=== PATIENT | female | born 2000 | race Caucasian/White ===

== ENCOUNTER 2020-10-01 00:11 | Emergency (ER) | payer SELFPAY ==
[2020-10-01] MEDS ORDERED: Ketorolac Tromethamine 30 MG/ML VIAL ONE (00:54)
[2020-10-01 00:56] LABS: #Basophils 0.1 thou/uL (0.0-0.2); #Eosinphils 0.6 thou/uL (0.0-0.7); #Lymphocytes 1.8 thou/uL (1.20-3.40); #Monocytes 0.1 thou/uL (0.11-0.59); #Neutrophils 7.6 thou/uL (1.40-6.50); %Basophils 0.5 % (0.0-1.0); %Eosinophils 5.5 % (0.0-10.0); %Lymphocytes 18.3 % (21.0-51.0); %Monocytes 0.5 % (0.0-10.0); %Neutrophils 75.1 % (42.0-75.0); MDiff Complete? YES; Mean Corpuscular HGB CONC 31.2 g/dL (32.0-36.0); Mean Corpuscular Hemoglobin 22.3 pg (27.0-31.0); Mean Corpuscular Volume 71.4 fL (78.0-98.0); Mean Platelet Volume 7.7 fL (7.4-10.4); Microcytosis SLIGHT = 6-15 cells (100X) (0-5/hpf); Platelet Count 496 thou/uL (130-400); Red Blood Cell (RBC) Count 4.51 mill/uL (4.20-5.40); White Blood Cell (WBC) Count 10.1 thou/uL (4.8-10.8)
[2020-10-01 01:08] LABS: Pregnancy Test - Urine (BHCG) POSITIVE (Negative)
[2020-10-01 01:11] LABS: Bacteria/HPF 3+ HPF (None Seen); Bilirubin Negative (Negative); Blood, Urine 2+ (Negative); Calcium Oxalate Crystals 4+ HPF (None Seen); Clarity Turbid (Clear); Glucose, Urine (Dipstick) Normal (Negative); Ketone, Urine Negative (Negative); Leukocyte Negative Leu/uL (Negative); Nitrite 2+ (Negative); Protein, Urine (Dipstick) 20 mg/dL (Neg-Trace); RBC/HPF 0-3 HPF (0-3); Squamous Epithelial 0-3 HPF (0-3); Urobilinogen Normal mg/dL (Less than 2); pH, Urine 5.5 (5.0-9.0)
[2020-10-01 01:12] LABS: Pregu Control Background? CLEAR/WHITE (CLR/WHITE); Pregu Control Bar Appear? YES (CONTROL BAR)
[2020-10-01 01:13] LABS: Anion Gap 15 mmol/L (10-20); BUN (Urea Nitrogen) 10 mg/dL (7.0-18.7); Calc. Creatinine Clearance 0 mL/min (70-130); Carbon Dioxide 21 mmol/L (22-29); Chloride 103 mmol/L (98-107); Glucose 91 mg/dL (70-105); Potassium 5.1 mmol/L (3.5-5.1); Sodium 134 mmol/L (136-145)
[2020-10-01] MEDS ORDERED: cefTRIAXone\\ROCEPHIN 1 GM VIAL ONE (02:37)
--- NOTE | 2020-10-01 09:24 | ULT ---
PRELIMINARY REPORT/DIRECT RADIOLOGY/EMERGENCY AFTER HOURS PROCEDURE: EXAM: US Obstetrical, Complete <14 weeks CLINICAL HISTORY: Lt flank to lt lower back pain, unknown LMP, HCG [id number] TECHNIQUE: Transabdominal imaging of the maternal pelvis and a <14 week gestation with image document ation. COMPARISON: None provided. FINDINGS: GESTATION: An intrauterine gestation is noted with a CRL of 4.9 cm corresponding to 11 weeks 5 days a nd demonstrating a heartbeat of 158 bpm. The placenta is anterior. UTERUS: Unremarkable. No myometrial mass. Measures 10.8 x 8.9 cm. CERVIX: Closed. Unremarkable. OVARIES: Unremarkable. No mass. The RIGHT side measures 3.5 x 1.6 x 1.5 cm and the LEFT side measure s 3.4 x 2.0 x 2.5 cm. A 1.2 x 1.0 x 0.5 cm LEFT ovarian cyst is noted. FREE FLUID: No free fluid. IMPRESSION: Single viable intrauterine . No acute abnormality. ELECTRONICALLY SIGNED BY: Sandro Arce MD Oct 01, 2020 2:38:50 AM LANGUAGE SPECIALIST FINAL REPORT OB ULTRASOUND: Viable intrauterine . [place]-rump length indicates 11-week 5-day gestational age. hea rt beat recorded at 158 b.p.m. I am in agreement with the preliminary report. POS: AGW
--- NOTE | 2020-10-01 09:30 | ULT ---
PRELIMINARY REPORT/DIRECT RADIOLOGY/EMERGENCY AFTER HOURS PROCEDURE: EXAM: US Retroperitoneum Complete, Renal. CLINICAL HISTORY: Lt flank to lt lower back pain TECHNIQUE: Real-time ultrasound of the retroperitoneum (complete) with image documentation. COMPARISON: None provided. FINDINGS: RIGHT KIDNEY: No hydronephrosis, renal stone, or mass visualized. Measures 10.7 x 4.5 x 5.0 cm LEFT KIDNEY: No hydronephrosis, renal stone, or mass visualized. Measures 12.0 x 6.3 x 5.1 cm BLADDER: Unremarkable as visualized. Measures 2.4 x 6.2 x 2.5 cm corresponding to a volume of 21 cc. Neither ureteral jet was visualized IMPRESSION: No hydronephrosis. ELECTRONICALLY SIGNED BY: Sandro Arce MD Oct 01, 2020 2:32:14 AM GIFT CONSULTANT FINAL REPORT RENAL ULTRASOUND: Both kidneys are imaged and appear unremarkable. No hydronephrosis. No evidence of calculus or mass . The bladder is mildly distended and appears unremarkable. I am in agreement with the preliminary report. POS: [facility]
== END 2020-10-01 03:16 | disposition home or self-care (01) ==
LOC: ERS 00:11
DX: O23.41 Unspecified infection of urinary tract in pregnancy, first trimester (principal); O99.331 Smoking (tobacco) complicating pregnancy, first trimester; Z3A.13 13 weeks gestation of pregnancy
CPT/HCPCS: 76770; 76856; 80048; 81003; 81015; 81025; 84702; 85025; 93976; 96365; 96375; J0696; J1885

== ENCOUNTER 2021-01-09 08:01 | Outpatient (CLI) | payer OTHER | END 2021-01-09 08:02 | disposition home or self-care (01) | LOC: BICULT 08:01 | PROVIDERS: ATTEND Family Medicine | DX: Z34.02 Encounter for supervision of normal first pregnancy, second trimester (principal); Z3A.26 26 weeks gestation of pregnancy | CPT/HCPCS: 76805 ==

== ENCOUNTER 2021-02-15 13:38 | Emergency (ER) | payer OTHER | END 2021-02-15 16:16 | disposition home or self-care (01) | LOC: ERS 13:38 | DX: O99.513 Diseases of the respiratory system complicating pregnancy, third trimester (principal); J45.901 Unspecified asthma with (acute) exacerbation; Z3A.31 31 weeks gestation of pregnancy; O99.333 Smoking (tobacco) complicating pregnancy, third trimester; F17.210 Nicotine dependence, cigarettes, uncomplicated | CPT/HCPCS: 71045; 93005; J7620 ==

== ENCOUNTER 2023-09-01 15:18 | Emergency (ER) | payer OTHER, SELFPAY ==
[2023-09-01] MEDS ORDERED: Dexamethasone 10 MG/ML VIAL ONE (15:53)
[2023-09-01] MEDS ORDERED: Ipratropium/Albuterol 3 ML NEB ONE (15:59)
[2023-09-01 17:37] LABS: SARS-CoV-2 NAA Rapid Test Not Detected (NotDetected)
[2023-09-01 18:19] LABS: #Monocytes 0.2 thou/uL (0.11-0.59); #Neutrophils 8.2 thou/uL (1.40-6.50); %Basophils 0.4 % (0.0-1.0); %Eosinophils 0.1 % (0.0-10.0); %Lymphocytes 11.6 % (21.0-51.0); %Neutrophils 85.2 % (42.0-75.0); Hematocrit 40.2 % (36.0-47.0); Mean Corpuscular HGB CONC 32.3 g/dL (32.0-36.0); Mean Corpuscular Hemoglobin 28.4 pg (27.0-31.0); Mean Platelet Volume 9.4 fL (7.4-10.4); Platelet Count 357 10x3/uL (130-400); RBC Distribution Width 13.5 % (11.5-14.5); Red Blood Cell (RBC) Count 4.57 mill/uL (4.20-5.40); White Blood Cell (WBC) Count 9.7 10x3/uL (4.8-10.8)
[2023-09-01] MEDS ORDERED: diphenhydrAMINE 50 MG/ML VIAL ONE (18:21)
[2023-09-01] MEDS ORDERED: Metoclopramide HCl 10 MG/2 ML VIAL ONE (18:21)
[2023-09-01 18:43] LABS: ALT (SGPT) 29 U/L (8-55); AST (SGOT) 17 U/L (5-34); Albumin 4.2 g/dL (3.5-5.0); Alkaline Phosphatase 102 U/L (40-110); Anion Gap 14 mmol/L (10-20); BUN (Urea Nitrogen) 8 mg/dL (7.0-18.7); Bilirubin, Total 0.3 mg/dL (0.2-1.2); Calc. Creatinine Clearance 0 mL/min (70-130); Calcium 9.1 mg/dL (7.8-10.44); Carbon Dioxide 19 mmol/L (22-29); Chloride 108 mmol/L (98-107); Estimated GFR 124; Globulin 3.4 g/dL (2.4-3.5); Glucose 174 mg/dL (70-105); Potassium 3.7 mmol/L (3.5-5.1); Protein, Total 7.6 g/dL (6.0-8.3); Sodium 137 mmol/L (136-145)
== END 2023-09-01 19:26 | disposition home or self-care (01) ==
LOC: ERS 15:18
DX: J06.9 Acute upper respiratory infection, unspecified (principal); G43.009 Migraine without aura, not intractable, without status migrainosus; F17.210 Nicotine dependence, cigarettes, uncomplicated
CPT/HCPCS: 36415; 71045; 80053; 85025; 94640; 96361; 96374; 96375; J1100; J1200; J2765; J7620

== ENCOUNTER 2023-11-17 13:34 | Emergency (ER) | payer OTHER ==
[2023-11-17 15:22] LABS: Pregnancy Test - Urine (BHCG) Negative (Negative); Pregu Control Background? CLEAR/WHITE (CLR/WHITE); Pregu Control Bar Appear? YES (CONTROL BAR); Specific Gravity 1.017 (1.002-1.036)
[2023-11-17 15:24] LABS: Bacteria/HPF 4+ HPF (None Seen); Bilirubin Negative (Negative); Blood, Urine 3+ (Negative); CAUTI Indications for Culture Dysuria,urgency,freq; Clarity Turbid (Clear); Glucose, Urine (Dipstick) Normal (Negative); Ketone, Urine Negative (Negative); Leukocyte 500 Leu/uL (Negative); Nitrite 2+ (Negative); Protein, Urine (Dipstick) 50 mg/dL (Neg-Trace); RBC/HPF Greater than 50 HPF (0-3); Specific Gravity, Urine 1.017 (1.002-1.036); Transitional Epithelial 0-3 HPF (None Seen); Urobilinogen Normal mg/dL (Less than 2); WBC/HPF Greater than 50 HPF (0-3); pH, Urine 5.5 (5.0-9.0)
[2023-11-17 15:27] LABS: Urine Culture Reflex Yes Yes
== END 2023-11-17 15:42 | disposition home or self-care (01) ==
LOC: ERS 13:34
DX: N39.0 Urinary tract infection, site not specified (principal); J45.909 Unspecified asthma, uncomplicated; L30.9 Dermatitis, unspecified; F17.210 Nicotine dependence, cigarettes, uncomplicated; F17.290 Nicotine dependence, other tobacco product, uncomplicated; Z55.6 Problems related to health literacy; Z75.3 Unavailability and inaccessibility of health-care facilities
CPT/HCPCS: 81001; 81025; 87077; 87086; 87186; 99283

== ENCOUNTER 2024-10-06 15:29 | Emergency (ER) | payer OTHER ==
[2024-10-06 16:16] LABS: #Basophils 0.05 10x3/uL (0.0-0.2); %Basophils 0.3 % (0.0-1.0); %Eosinophils 2.1 % (0.0-10.0); %Lymphocytes 13.5 % (21.0-51.0); %Monocytes 7.1 % (0.0-10.0); %Neutrophils 76.6 % (42.0-75.0); Hematocrit 42.8 % (36.0-47.0); Hemoglobin 14.2 g/dL (12.0-16.0); Mean Corpuscular HGB CONC 33.2 g/dL (32.0-36.0); Mean Corpuscular Hemoglobin 28.3 pg (27.0-31.0); Mean Corpuscular Volume 85.4 fL (78.0-98.0); Mean Platelet Volume 9.2 fL (7.4-10.4); Platelet Count 477 10x3/uL (130-400); Red Blood Cell (RBC) Count 5.01 mill/uL (4.20-5.40)
[2024-10-06] MEDS ORDERED: Ondansetron ODT 4 MG TAB ONE (16:31)
[2024-10-06] MEDS ORDERED: Famotidine 20 MG TAB ONE (16:31)
[2024-10-06 16:32] LABS: ALT (SGPT) 32 U/L (8-55); AST (SGOT) 18 U/L (5-34); Albumin 4.3 g/dL (3.5-5.0); Alkaline Phosphatase 107 U/L (40-110); Anion Gap 11 mmol/L (10-20); BUN (Urea Nitrogen) 13 mg/dL (7.0-18.7); Bilirubin, Total 0.6 mg/dL (0.2-1.2); Calc. Creatinine Clearance 0 mL/min (70-130); Calcium 9.8 mg/dL (7.8-10.44); Carbon Dioxide 22 mmol/L (22-29); Chloride 106 mmol/L (98-107); Estimated GFR 127; Globulin 4.2 g/dL (2.4-3.5); Glucose 82 mg/dL (70-105); Lipase 19 U/L (8-78); Potassium 4.2 mmol/L (3.5-5.1); Protein, Total 8.5 g/dL (6.0-8.3); Sodium 135 mmol/L (136-145)
[2024-10-06 17:12] LABS: BHCG - Serum Negative (NEGATIVE); Pregs Control Background? CLEAR/WHITE (CLR/WHITE); Pregs Control Bar Appear? YES (CONTROL BAR)
[2024-10-06] MEDS ORDERED: Ketorolac Tromethamine 30 MG (1 mL) VIAL ONE (17:21)
[2024-10-06 17:50] LABS: Bacteria/HPF None Seen HPF (None Seen); Bilirubin Negative (Negative); Blood, Urine Negative (Negative); CAUTI Indications for Culture Dysuria,urgency,freq; Clarity Clear (Clear); Glucose, Urine (Dipstick) Normal (Negative); Ketone, Urine Negative (Negative); Leukocyte Negative Leu/uL (Negative); Nitrite Negative (Negative); Protein, Urine (Dipstick) Negative (Neg-Trace); RBC/HPF 0-3 HPF (0-3); Specific Gravity, Urine 1.029 (1.002-1.036); Urobilinogen Normal mg/dL (Less than 2); WBC/HPF 0-3 HPF (0-3)
[2024-10-06 17:51] LABS: Pregnancy Test - Urine (BHCG) Negative (Negative); Pregu Control Background? CLEAR/WHITE (CLR/WHITE); Pregu Control Bar Appear? YES (CONTROL BAR); Specific Gravity 1.029 (1.002-1.036); Urine Culture Reflex No No
== END 2024-10-06 18:28 | disposition home or self-care (01) ==
LOC: ERS 15:29
DX: R10.9 Unspecified abdominal pain (principal); D72.829 Elevated white blood cell count, unspecified; F17.290 Nicotine dependence, other tobacco product, uncomplicated; F17.210 Nicotine dependence, cigarettes, uncomplicated
CPT/HCPCS: 36415; 74176; 80053; 81001; 81025; 83690; 84703; 85025; 96374; J1885; Q0162